=== PATIENT | female | born 1950 | race Caucasian/White ===

== ENCOUNTER 2017-01-13 11:19 | Inpatient (IN) | payer MEDICARE ==
--- NOTE | ~2017-01-13 | DS ---
Discharge Summary [facility] [address] [place]. [address] NAME: LISE BRICENO : 54 STATUS : DIS IN PAT#: [id number] AGE: 66 ADM/REG DATE : 01/13/17 MR#: [id number] REPORT SERV DATE: 01/22/17 DICTATED BY: RAI MASSEY DATE: 01/21/17 REPORT STATUS : Draft TRANSCRIBED BY: SUSHANT DATE: 01/21/17 Data Collection from hospitalization DISCHARGE DIAGNOSES: 1. History of stage IIIC ovarian cancer. 2. Abdominal ascites and pleural effusions status post paracentesis. 3. Hypertension. 4. Lupus. 5. Atrial fibrillation. CONSULTATION: Dr. Bryan Malhotra. PROCEDURES: Right IJ Port-A-Cath placement, 01/15/2017. CT scan of the abdomen and pelvis without contrast, 01/13/2017. Ultrasound-guided paracentesis, 01/14/2017. PATHOLOGY: Paracentesis fluid for cytology (cell block, ThinPrep, direct smears)-papillary adenocarcinoma consistent with patient's history of ovarian origin. DISCHARGE MEDICATIONS: Aspirin 81 mg daily, vitamin D3 2000 units daily, Flexeril 10 mg daily as needed, estradiol 2 mg daily, Prozac 20 mg daily, Neurontin 300 mg twice a day, [place] 7.5/325 one tablet twice a day as needed, Plaquenil 200 mg twice a day, levothyroxine 25 mcg daily, Lopressor 12.5 mg twice a day, ProAmatine 1.25 mg twice a day, fish oil 4000 mg twice a day, Prilosec 20 mg daily, Deltasone 5 mg daily, Rythmol 150 mg twice a day. CONDITION AT DISCHARGE: Stable. DISPOSITION: The patient was discharged home on a regular diet with activities as instructed. She would follow up with me, 01/19/2017. HOSPITAL COURSE: This is a 66-year-old female, who has a history of stage IIIC ovarian cancer that was diagnosed in April of 2014 after undergoing exploratory laparotomy with LSO, tumor debulking, and lymph node dissection. The patient had received IV/IP Taxol and cisplatin. After completing six cycles, she had been in no acute distress. She presented to the emergency room at this time complaining of a six-month history of decreased appetite, abdominal distention, and shortness of breath. A CT scan in the emergency room revealed a large amount of abdominal ascites and left-sided pleural effusion. She was also found to have a urinary tract infection. She was admitted to the hospital for further evaluation and treatment. Upon admission, CA-125 tumor marker was going to be checked. It was felt that the patient would need to undergo ultrasound-guided paracentesis. Fluid would be sent for cytology. The following day, she underwent ultrasound-guided paracentesis, 4.1 L was evacuated and submitted for cytopathology. On the , she seemed to be feeling better. The risks, benefits, and side effects of chemotherapy were discussed, and the patient wanted to proceed with chemotherapy. It was felt that she would need a Port-A-Cath placed. She was seen by Dr. Bryan Malhotra. The patient had had a port placed for chemotherapy in the past, but this had subsequently been removed. She now needed a new port for chemotherapy administration. She consented for intervention. She was taken to the operating room by Dr. Bryan Malhotra, Discharge Summary [address] [address] NAME: LISE BRICENO : 54 STATUS : DIS IN PAT#: [id number] AGE: 66 ADM/REG DATE : 01/13/17 MR#: [id number] REPORT SERV DATE: 01/22/17 DICTATED BY: RAI MASSEY DATE: 01/21/17 REPORT STATUS : Draft TRANSCRIBED BY: SUSHANT DATE: 01/21/17 where she underwent the above-mentioned procedure. She tolerated this well and there were no complications. Discharge planning was performed. On 01/16/2017, she was feeling better after the paracentesis support was in place. Discharge instructions were given. Due to her improved and stable condition, she was discharged home with the above-stated instructions. Information collected by: Bruna Mars I submit the above information as my discharge summary. AMBERLY/SUSHANT Rai Massey M.D. / [id number] CC: Paulo Cueto M.D.
--- NOTE | ~2017-01-13 | OP ---
Record Of Operation [facility] [address] [place]. [address] NAME: LISE BRICENO : 54 STATUS : DIS IN PAT#: [id number] AGE: 66 ADM/REG DATE : 01/13/17 MR#: [id number] REPORT SERV DATE: 01/17/17 DICTATED BY: BRYAN MALHOTRA DATE: 01/17/17 REPORT STATUS : Draft TRANSCRIBED BY: SUSHANT DATE: 01/17/17 DATE OF PROCEDURE: 01/15/2017 PREOPERATIVE DIAGNOSIS: Ovarian cancer. POSTOPERATIVE DIAGNOSIS: Ovarian cancer. PROCEDURE: Right IJ Port-A-Cath. SURGEON: Bryan Malhotra M.D. PRECINCT I POLICE SERGEANT: None. ANESTHESIA: MAC plus local. INDICATION: The patient is a 66-year-old female, who has ovarian cancer. She has had a port placed for chemotherapy in the past, but this was subsequently removed. She now needs a new port for chemotherapy administration. Thus, she was consented for intervention. PROCEDURE: After informed consent was obtained, the patient was taken to the operating room and placed in the supine position on the operating table. Monitored anesthesia was administered. The patient's right neck and chest were prepped and draped in usual sterile fashion. Ultrasound-guided access was obtained of the right internal jugular vein. The ultrasound image was documented on the chart. I passed a wire centrally. I made a small skin incision. I then anesthetized the right chest. I made a skin incision and deep in the pocket. I tunneled the port tubing from the right chest to the right neck. I used fluoroscopy to estimate the catheter length. I cut the catheter, attached to the port, and fixated the port within the subcutaneous pocket. I then inserted the catheter into the peel away sheath under fluoroscopy and peeled away the sheath. I confirmed that the catheter was not kinked and that it aspirated and flushed well. The right neck and chest wounds were closed in layers. The patient tolerated the procedure well without any intraprocedural complications noted. NUPUR/SUSHANT Bryan Malhotra M.D. / [id number] CC: Paulo Cueto M.D.
--- NOTE | ~2017-01-13 | HP ---
History And Physical [facility] [id number] [place]. [address] NAME: LISE PONCE : 54 STATUS : ADM IN [facility]#: [id number] AGE: 66 ADM/REG DATE : 01/13/17 MR#: [id number] REPORT SERV DATE: 01/14/17 DICTATED BY: RASHEEDA WYNN DATE: 01/14/17 REPORT STATUS : Draft TRANSCRIBED BY: MODL DATE: 01/14/17 DATE OF ADMISSION: 01/13/2017 HISTORY OF PRESENT ILLNESS: Ms. Ponce is a 66-year-old female with a history of stage IIIC ovarian cancer, who was diagnosed in 04/2014 after undergoing an exploratory laparotomy with LSO, tumor debulking, and lymph node dissection. After patient's diagnosis, she received IV/IP Taxol and cisplatin. After completing six cycles, she has been NAD since that time. The patient presented to the emergency room yesterday with complaints of a six-month history of decreased appetite, abdominal distention, and shortness of breath. She was found in the emergency room, through a CT scan, to have a large amount of abdominal ascites and a left- sided pleural effusion. The patient was also found to have a severe urinary tract infection. PAST MEDICAL HISTORY: Significant for lupus, atrial fibrillation, and hypertension. PAST SURGICAL HISTORY: Hysterectomy in 1976, pericardial window in 2002, cholecystectomy, tonsillectomy, pacemaker placement, right foot reconstruction, tubal ligation in 1974, the above-mentioned ex-lap tumor debulking and colon resection in 04/2014. She also had her IP and Port-A-Cath removed in 10/2015. FAMILY HISTORY: A sister with colon cancer at age 57, son with non-Hodgkin's lymphoma and is in remission. SOCIAL HISTORY: Denies any tobacco, alcohol, or illicit drug use. ALLERGIES: NO KNOWN DRUG ALLERGIES. REVIEW OF SYSTEMS: As indicated in HPI. PHYSICAL EXAMINATION: GENERAL: She is alert and oriented x3. No acute distress. LUNGS: Clear to auscultation bilaterally. ABDOMEN: Soft and distended, with positive bowel sounds. EXTREMITIES: No swelling and pulses +2. ASSESSMENT/PLAN: This is a 66-year-old female with a history of stage IIIC ovarian cancer, who now has abdominal ascites and a left pleural effusion with shortness of breath, and decreased appetite. We will check a CA-125 tumor marker. We will also set the patient up for an ultrasound-guided paracentesis, and we will send fluid for cytology. I reviewed the patient's presentation with Dr. Mcginnis who agrees with the above plan. MARQUIS/SUSHANT History And Physical [address] [address] NAME: LISE PONCE : 54 STATUS : ADM IN PAT#: [id number] AGE: 66 ADM/REG DATE : 01/13/17 MR#: [id number] REPORT SERV DATE: 01/14/17 DICTATED BY: RASHEEDA WYNN DATE: 01/14/17 REPORT STATUS : Draft TRANSCRIBED BY: SUSHANT DATE: 01/14/17 Rasheeda Wynn NP / [id number] CC: Paulo Cueto M.D.
[2017-01-13 10:08] LABS: BASOPHILS 0.2 %; BASOPHILS ABSOLUTE 0.02 10/3/uL (0.0-0.16); EOSINOPHILS 0 %; HEMATOCRIT 37.3 % (36.0-48.0); HEMOGLOBIN 12.3 g/dL (12.0-16.0); IMMATURE GRANULOCYTES 0.6 %; IMMATURE GRANULOCYTES ABSOLUTE 0.07 10/3/uL (0.0-0.11); LYMPHOCYTES 10.1 %; LYMPHOCYTES ABSOLUTE 1.09 10/3/uL (0.67-4.30); MEAN CORPUSCULAR HEMOGLOB 29.4 pg (26.0-34.0); MEAN PLATELET VOLUME 8.6 fL (9.2-13.0); MONOCYTES 9.1 %; MONOCYTES ABSOLUTE 0.98 10/3/uL (0.21-1.20); NEUTROPHILS ABSOLUTE 8.64 10/3/uL (2.02-8.40); RBC DISTRIBUTION WIDTH 12.3 % (12.0-16.0); RED CELL COUNT 4.18 10/6/uL (4.0-5.6); WHITE BLOOD CELLS 10.8 10/3/uL (4.5-10.5)
[2017-01-13 10:10] LABS: ER CBC TAT 0 Hrs 10 Mins; MANUAL DIFF NO %; MEAN CORPUSCULAR VOLUME 89.2 fL (80-100); PLATELET COUNT 431 10/3/uL (150-400)
[2017-01-13 10:21] LABS: BUN (BLOOD UREA NITROGEN) 12 MG/DL (6-23); CALCIUM, SERUM 8.9 MG/DL (8.5-10.4); CO2 (CARBON DIOXIDE) 28 MMOL/L (24-34); CREATININE 1.17 MG/DL (0.55-1.02); GFR AFRICAN AMERICAN 57 ML/MIN (>=60); GFR NON AFRICAN AMERICAN 49 ML/MIN (>=60); GLUCOSE, SERUM 91 MG/DL (60-99); POTASSIUM, SERUM 3.3 MMOL/L (3.5-5.3); SGOT(AST) 15 U/L (5-40); SGPT(ALT) 12 U/L (5-65); TOTAL BILIRUBIN 0.4 MG/DL (0-1.2); TOTAL PROTEIN 6.5 G/DL (6.0-8.5)
[2017-01-13 10:22] LABS: ASCORBIC ACID (UR NOT ORDER) NEG (NEG); BILIRUBIN, URINE NEGATIVE (NEG); ER URINALYSIS TAT 0 Hrs 24 Mins; KETONE, URINE NEGATIVE (NEG); LEUKOCYTE ESTERASE(NOT OR MOD (NEG); NITRITE (URINE) NEG (NEG)
[2017-01-13 10:23] LABS: A/G RATIO 0.5 (0.7-1.9); ALBUMIN 2.3 G/DL (3.5-5.0); ALKALINE PHOSPHATASE 117 U/L (45-117); CHLORIDE, SERUM 98 MMOL/L (96-112); GLOBULIN 4.2 G/DL (2.5-4.1); SODIUM, SERUM 133 MMOL/L (135-148)
[~2017-01-13 11:19] MED LIST: ASAB PO; AUG500 PO; B12100T PO; CALTRA600D PO; CALTRAT600 PO; CHEMO TREATMENT; CLARIT10 PO; CO Q-10100 MG PO; COMP10B PO; DEX4 PO; ESTRADIOL2 MG OR; ETODOLAC500 MG OR; FISH-EPA1000 MG PO; FLAG500TAB PO; FLEX PO; KLOR-CON 1010 MEQ PO; LEVAQUIN750 MG PO; LEVOTHYROXIN25 MCG PO; LOP25 PO; LOVENOX40 SC; MAG-DELAY PO; MIDODRINE PO; MULTI-VIT HP OR; NATURE-THROI64.8 MG PO; NEUR600 PO; NORCO1 TA2 PO; ORAZINC110 MG PO; P5 PO; PCET PO; PLAQ200B PO; POT GLUCONAT550 M1 PO; POT GLUCONAT595 M1 OR; POT GLUCONAT595 M1 PO; PR25 PO; PRAVAC PO; PRAVACHOL40 MG PO; PRILO PO; PRILOSEC40 MG PO; PROAMAT5 PO; PROLINE PO; PROZAC PO; RYTHMOL150 MG PO; RYTHMOL225 MG PO; SENTAB PO; TIROSINT25 MCG PO; URO-MAG140 MG PO; VICODIN ES1 TAB PO; VITAMIN C100 MG PO; VITAMIN D1000 UNI1 PO; VITAMIN D31000 UNIT PO; VITE PO; ZINC OR; ZOFRAN4 PO; ZOFRANODT8 PO; [UNRECOGNIZED DRUG - OTHER] OR; [UNRECOGNIZED DRUG - OTHER] PO; [UNRECOGNIZED DRUG - OTHER] PO
[2017-01-13] MEDS ORDERED: RYTHMOL150 MG PO (13:09)
[2017-01-13] MEDS ORDERED: PROAM25 PO (13:10)
[2017-01-13] MEDS ORDERED: LOP25 PO (13:10)
[2017-01-13] MEDS ORDERED: P5 PO (13:10)
[2017-01-13] MEDS ORDERED: ESTRADIOL2 MG PO (13:11)
[2017-01-13] MEDS ORDERED: PLAQ200B PO (13:11)
[2017-01-13] MEDS ORDERED: NEUR300 PO (13:11)
[2017-01-13] MEDS ORDERED: PRILO PO (13:12)
[2017-01-13] MEDS ORDERED: LEVOTHYROXIN25 MCG PO (13:12)
[2017-01-13] MEDS ORDERED: PCET PO (13:14)
[2017-01-13] MEDS ORDERED: FLEX PO (13:14)
[2017-01-13] MEDS ORDERED: PROZAC PO (13:14)
[2017-01-13] MEDS ORDERED: ASAB PO (13:15)
[2017-01-13] MEDS ORDERED: FISH-EPA1000 MG PO (13:15)
[2017-01-13] MEDS ORDERED: VITAMIN D31000 UNIT PO (13:16)
[2017-01-14 04:55] LABS: BASOPHILS 0.1 %; BASOPHILS ABSOLUTE 0.01 10/3/uL (0.0-0.16); EOSINOPHILS 0 %; HEMATOCRIT 36.5 % (36.0-48.0); HEMOGLOBIN 11.9 g/dL (12.0-16.0); IMMATURE GRANULOCYTES 0.7 %; IMMATURE GRANULOCYTES ABSOLUTE 0.06 10/3/uL (0.0-0.11); LYMPHOCYTES 12.2 %; LYMPHOCYTES ABSOLUTE 1.06 10/3/uL (0.67-4.30); MEAN CORPUS HGB CONC 32.6 g/dL (32.0-36.0); MEAN CORPUSCULAR HEMOGLOB 29.8 pg (26.0-34.0); MEAN CORPUSCULAR VOLUME 91.5 fL (80-100); MONOCYTES 11.2 %; MONOCYTES ABSOLUTE 0.97 10/3/uL (0.21-1.20); NEUTROPHILS 75.8 %; NEUTROPHILS ABSOLUTE 6.59 10/3/uL (2.02-8.40); PLATELET COUNT 430 10/3/uL (150-400); RBC DISTRIBUTION WIDTH 12.5 % (12.0-16.0); RED CELL COUNT 3.99 10/6/uL (4.0-5.6); WHITE BLOOD CELLS 8.7 10/3/uL (4.5-10.5)
[2017-01-14 05:03] LABS: MANUAL DIFF NO %
[2017-01-14 05:13] LABS: BUN (BLOOD UREA NITROGEN) 13 MG/DL (6-23); CALCIUM, SERUM 8.6 MG/DL (8.5-10.4); CHLORIDE, SERUM 101 MMOL/L (96-112); CO2 (CARBON DIOXIDE) 28 MMOL/L (24-34); CREATININE 1.15 MG/DL (0.55-1.02); GFR AFRICAN AMERICAN 58 ML/MIN (>=60); GFR NON AFRICAN AMERICAN 50 ML/MIN (>=60); GLUCOSE, SERUM 79 MG/DL (60-99); SODIUM, SERUM 138 MMOL/L (135-148)
[2017-01-14 05:25] LABS: POTASSIUM, SERUM 4.1 MMOL/L (3.5-5.3)
[2017-01-14 11:10] LABS: CA 125 II 171.5 U/ML (< 35.0)
[2017-01-14 12:49] LABS: INTERNATIONAL NORMAL RATI 1.1 UNITS (-); PARTIAL THROMBO TIME 35.5 SEC (22.5-37.2); PROTIME (NOT ORD) 14.2 SEC (12.0-14.5)
[2017-01-14 12:57] LABS: ALBUMIN 2.1 G/DL (3.5-5.0); TOTAL PROTEIN 6.5 G/DL (6.0-8.5)
[2017-01-15 10:00] LABS: BASOPHILS 0.2 %; BASOPHILS ABSOLUTE 0.02 10/3/uL (0.0-0.16); EOSINOPHILS 0 %; HEMOGLOBIN 11.5 g/dL (12.0-16.0); IMMATURE GRANULOCYTES 0.7 %; IMMATURE GRANULOCYTES ABSOLUTE 0.06 10/3/uL (0.0-0.11); LYMPHOCYTES 10.9 %; LYMPHOCYTES ABSOLUTE 0.95 10/3/uL (0.67-4.30); MEAN CORPUS HGB CONC 32.9 g/dL (32.0-36.0); MEAN CORPUSCULAR HEMOGLOB 29.3 pg (26.0-34.0); MEAN CORPUSCULAR VOLUME 89.3 fL (80-100); MEAN PLATELET VOLUME 8.9 fL (9.2-13.0); MONOCYTES 9.9 %; MONOCYTES ABSOLUTE 0.86 10/3/uL (0.21-1.20); NEUTROPHILS 78.3 %; NEUTROPHILS ABSOLUTE 6.79 10/3/uL (2.02-8.40); PLATELET COUNT 373 10/3/uL (150-400); RBC DISTRIBUTION WIDTH 12.5 % (12.0-16.0); RED CELL COUNT 3.92 10/6/uL (4.0-5.6); WHITE BLOOD CELLS 8.7 10/3/uL (4.5-10.5)
[2017-01-15 10:04] LABS: MANUAL DIFF NO %
[2017-01-15 10:09] LABS: INTERNATIONAL NORMAL RATI 1.1 UNITS (-)
[2017-01-15 10:12] LABS: WBC (NOT ORDERED) (RFLEX) > 182 (0-5)
[2017-01-15 10:17] LABS: BUN (BLOOD UREA NITROGEN) 13 MG/DL (6-23); CALCIUM, SERUM 8.5 MG/DL (8.5-10.4); CHLORIDE, SERUM 99 MMOL/L (96-112); CO2 (CARBON DIOXIDE) 25 MMOL/L (24-34); CREATININE 1.22 MG/DL (0.55-1.02); GFR AFRICAN AMERICAN 54 ML/MIN (>=60); GFR NON AFRICAN AMERICAN 47 ML/MIN (>=60); POTASSIUM, SERUM 3.4 MMOL/L (3.5-5.3); SODIUM, SERUM 135 MMOL/L (135-148)
[2017-01-15 10:19] LABS: GLUCOSE, SERUM 96 MG/DL (60-99)
[2017-01-24] MEDS ORDERED: ZOFRANODT8 PO (11:35)
[2017-01-24] MEDS ORDERED: COMP10B PO (11:35)
== END 2017-01-16 12:48 | disposition home or self-care (01) | DRG 948 ==
LOC: ER 11:19 → 4EA 17:58
PROVIDERS: Emergency Medicine; Obstetrics & Gynecology Gynecologic Oncology; Radiology Diagnostic Radiology
PROC: 0W9G3ZZ Drainage of Peritoneal Cavity, Percutaneous Approach (ICD-10-PCS; principal; 2017-01-14)
PROC: 05HM33Z Insertion of Infusion Device into Right Internal Jugular Vein, Percutaneous Approach (ICD-10-PCS; 2017-01-15)
PROC: B543ZZA Ultrasonography of Right Jugular Veins, Guidance (ICD-10-PCS; 2017-01-15)
DX: R18.8 Other ascites (principal); J90 Pleural effusion, not elsewhere classified; C56.9 Malignant neoplasm of unspecified ovary; I48.91 Unspecified atrial fibrillation; M32.9 Systemic lupus erythematosus, unspecified; N39.0 Urinary tract infection, site not specified; Z85.43 Personal history of malignant neoplasm of ovary; I10 Essential (primary) hypertension; Z95.0 Presence of cardiac pacemaker
CPT/HCPCS: 36561; 49083; 74176; 77001; 80048; 80053; 81001; 82040; 83605; 83690; 84155; 85025; 85610; 85730; 86304; 87077; 87086; 87186; 88112; 88305; 96374; 96375; 99285; A9270-GY; C1788; J0690; J1170; J2250; J2405; J3010; P9047; Q9966